=== PATIENT | female | born 1960 | race Hispanic/Latino ===

== ENCOUNTER 2017-09-02 20:52 | Emergency (ER) | payer OTHER ==
[2017-09-02 20:53] VITALS: BMI 34.0
[2017-09-02 21:02] VITALS: BP 90/60; PULSE 77; RESP 16; TEMP 97.7; O2SAT 97
--- NOTE | 2017-09-02 21:15 | ED PDOC ---
HPI: Psych/Substance Abuse Time Seen by Provider: 09/02/17 21:04 Chief Complaint (Nursing): Psychiatric Evaluation History Per: Other ([place] [facility] [place] Pt has h/o Down's syndrome and Alzheimers dementia) Past Medical History Vital Signs: Last Vital Signs Temp 97.7 F 09/02/17 20:56 Pulse 77 09/02/17 20:56 Resp 16 09/02/17 20:56 BP 90/60 L 09/02/17 20:56 Pulse Ox 97 09/02/17 20:56 - Medical History PMH: Alzheimer's Disease, Anemia, Arthritis (RLE KN/ANKLE), Asthma, Depression, Hypothyroidism, Chronic Kidney Disease, Sleep Apnea Denies: Diabetes, Hepatitis, HIV, HTN, Seizures, Sexually Transmitted Disease Comment Only: Dementia (Down syndrome) Other PMH: Downs syndrome - Family History Family History: States: Unknown Family Hx - Home Medications Home Medications: Ambulatory Orders Medication Instructions Recorded ALPRAZolam [Xanax] 0.25 mg PO Q6H 07/30/17 Acetaminophen [Tylenol 325mg tab] 325 mg PO Q4H PRN 07/30/17 Allopurinol [Zyloprim] 300 mg PO DAILY 07/30/17 Aluminum Hydroxide/Magnesium 30 ml PO Q4H PRN 07/30/17 [Maalox Plus 30 ml] Amoxicillin/Potassium Clav 1 tab PO Q12H 07/30/17 [Augmentin 500 mg-125 mg] Aspirin [Ecotrin] 81 mg PO DAILY 07/30/17 Bacitracin OINT 1 applic TP DAILY 07/30/17 Benzonatate [Tessalon Perle] 100 mg PO Q8H PRN 07/30/17 Calcium Carbonate/Vitamin D3 1 each PO DAILY 07/30/17 [Oyster Shell Calcium Tablet] Cholecalciferol (Vitamin D3) 1,000 unit PO DAILY 07/30/17 [Vitamin D3] Divalproex [Depakote ER] 250 mg PO BID 07/30/17 Docusate [Colace] 100 mg PO DAILY 07/30/17 Donepezil [Aricept] 10 mg PO HS 07/30/17 Escitalopram [Lexapro] 10 mg PO DAILY 07/30/17 Famotidine [Pepcid] 40 mg PO DAILY 07/30/17 Ferrous Sulfate 325 mg PO DAILY 07/30/17 Fludrocortisone Acetate 0.05 mg PO DAILY 07/30/17 Glycolax 17 gm PO DAILY 07/30/17 Heparin Sodium,Porcine [Heparin 5,000 unit IJ Q12H 07/30/17 Sodium] Ibuprofen [Motrin Ib] 200 mg PO Q4H PRN 07/30/17 Levothyroxine Sodium [Synthroid] 88 mcg PO DAILY 07/30/17 Magnesium Hydroxide [Milk Of 30 ml PO Q24H 07/30/17 Magnesia] QUEtiapine [SEROquel] 50 mg PO HS 07/30/17 Vitamin B Complex [Vitamin B 1 tab PO DAILY 07/30/17 Complex] Vits A and D/White Pet/Lanolin 1 ea TP HS 07/30/17 [Vitamin A & D] clonazePAM [clonAZEPAM] 0.5 mg PO BID 07/30/17 - Allergies Allergies/Adverse Reactions: Allergies Allergy/AdvReac Type Severity Reaction Status Date / Time FISH Allergy ANGIOEDEMA Verified 07/30/17 15:23 peaches Allergy RASH Uncoded 07/02/17 23:33 Review of Systems ROS Statement: Except As Marked, All Systems Reviewed And Found Negative Physical Exam - Reviewed Nursing Documentation Reviewed: Yes Vital Signs Reviewed: Yes - Physical Exam Appears: Positive for: Non-toxic, No Acute Distress Head Exam: Positive for: ATRAUMATIC, NORMAL INSPECTION, NORMOCEPHALIC Skin: Positive for: Normal Color, Warm, DRY Eye Exam: Positive for: EOMI, Normal appearance, PERRL ENT: Positive for: Normal ENT Inspection Neck: Positive for: Normal, Painless ROM Cardiovascular/Chest: Positive for: Regular Rate, Rhythm Respiratory: Positive for: CNT, Normal Breath Sounds Gastrointestinal/Abdominal: Positive for: Normal Exam, Bowel Sounds, Soft Back: Positive for: Normal Inspection Extremity: Positive for: Normal ROM Neurologic/Psych: Positive for: Alert, Oriented - ECG O2 Sat by Pulse Oximetry: 97 Disposition - Clinical Impression Clinical Impression: Alzheimer's dementia, Down's syndrome - Patient ED Disposition Is Patient to be Admitted: No Counseled Patient/Family Regarding: Diagnosis, Need For Followup - Disposition Disposition: Other Institution Disposition Time: 23:18 Condition: FAIR Forms: VTM (Bulgarian)
== END 2017-09-02 23:59 ==
LOC: H.ER 20:52
DX: G30.9 Alzheimer's disease, unspecified (principal); Q90.9 Down syndrome, unspecified; E03.9 Hypothyroidism, unspecified; F32.9 Major depressive disorder, single episode, unspecified; J45.909 Unspecified asthma, uncomplicated; Z79.82 Long term (current) use of aspirin